=== PATIENT | male | born 1990 | race Caucasian/White ===

== ENCOUNTER 2017-04-26 23:36 | Emergency (ER) | payer OTHER ==
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
[2017-04-27 01:57] VITALS: BP 137/92
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
--- NOTE | 2017-04-27 08:04 | RAD ---
HISTORY: Left knee pain status post injury COMPARISONS: None VIEWS: 3, Frontal, lateral, and oblique views of the left knee FINDINGS: BONE DENSITY: Normal. BONES: There is no displaced fracture. JOINTS: There is no arthropathy. There is no suprapatellar joint effusion or lipohemarthrosis. ALIGNMENT: There is no dislocation. SOFT TISSUES: Unremarkable. OTHER FINDINGS: None. IMPRESSION: NO ACUTE OSSEOUS INJURY. IF SYMPTOMS PERSIST, RECOMMEND REPEAT IMAGING.
== END 2017-04-27 01:55 | disposition home or self-care (01) ==
LOC: ED 23:36
DX: M25.562 Pain in left knee (principal); M25.561 Pain in right knee; J45.909 Unspecified asthma, uncomplicated
CPT/HCPCS: 99281